=== PATIENT | female | born 1945 | race Caucasian/White ===

== ENCOUNTER → 2016-09-15 | Outpatient (CLI) | payer MEDICARE ==
[~2016-09-15] MED LIST: ASPI1TAB69 PO; BYST5TAB2 PO; CELE40TA PO; GABA100C4 PO; LINA290C PO; LIPI10TA PO; MONT10TA2 PO; NEUR100C PO; NEXI40CA PO; SYMB80AE INH; ZETI10TA5 PO
--- NOTE | 2016-09-15 10:51 | RADRPT ---
EXAM DATE/TIME: 09/15/2016 10:38 [place] COMPARISON: No previous studies available for comparison. INDICATIONS : Evaluate for pneumonia, pneumothorax or communicable disease. Pre-op for right knee arthroscopy. MEDICAL HISTORY : None. SURGICAL HISTORY : None. ENCOUNTER: Initial ACUITY: 1 day PAIN SCORE: 0/10 LOCATION: Bilateral chest FINDINGS: PA and lateral views of the chest demonstrate the lungs to be symmetrically aerated without evidence of mass, infiltrate or effusion. The cardiomediastinal contours are unremarkable. Osseous structure s are intact. Degenerative changes thoracic spine. CONCLUSION: No acute disease. Cristopher Domínguez MD on September 15, 2016 at 10:49 Board Certified Radiologist. This report was verified electronically.
[2016-09-15 12:20] LABS: BLOOD, URINE NEG (NEG); GLUCOSE,URINE NEG (NEG); KETONE, URINE NEG (NEG); NITRITE,URINE NEG (NEG); PH, URINE 6.5 (5.0-8.5); URINE COLOR YELLOW (YELLW/STRAW)
[2016-09-15 12:20] LABS: AUTOMATED NEUTROPHIL # 4.6 TH/MM3 (1.8-7.7); BASOPHIL # 0.1 TH/MM3 (0-0.2); BASOPHIL % 1.1 % (0.0-2.0); EOSINOPHIL # 0.2 TH/MM3 (0-0.4); EOSINOPHIL % 2.9 % (0.0-4.0); HEMATOCRIT 40.1 % (35.0-46.0); HEMO FLAGS DIFF FINAL; LYMPH % 25.8 % (9.0-44.0); LYMPHOCYTE # 1.9 TH/MM3 (1.0-4.8); MEAN CELL VOLUME 91.8 FL (80.0-100.0); MEAN CORPUSCULAR HEMOGLOBIN 30.6 PG (27.0-34.0); MEAN CORPUSCULAR HGB CONC 33.3 % (32.0-36.0); MONO % 7.4 % (0.0-8.0); NEUT % 62.8 % (16.0-70.0); PLATELET COUNT 331 TH/MM3 (150-450); RED BLOOD COUNT 4.37 MIL/MM3 (4.00-5.30); RED CELL DISTRIBUTION WIDTH 14.8 % (11.6-17.2); WHITE BLOOD COUNT 7.4 TH/MM3 (4.0-11.0)
[2016-09-15 12:21] LABS: COMMENT (UR) CULT NOT INDICATED; CULTURE IF INDICATED CULT NOT INDICATED
[2016-09-15 12:44] LABS: BICARBONATE 29.9 MEQ/L (21.0-32.0); POTASSIUM 4.1 MEQ/L (3.5-5.1)
--- NOTE | 2016-09-16 07:28 | EKG ---
Date Performed: 09/15/2016 Time Performed: 09:52:22 PTAGE: 71 years EKG: Sinus rhythm MODERATE ST DEPRESSION, CONSIDER ISCHEMIA Clinical Correlation Recommended ABNORMAL ECG NO PREVIOUS TRACING DOCTOR: Ra Mcgill Interpretating Date/Time 09/16/2016 07:27:01
== END ==
LOC: CPRE 09:27
PROVIDERS: ATTEND Orthopaedic Surgery
DX: Z01.810 Encounter for preprocedural cardiovascular examination (principal); Z01.812 Encounter for preprocedural laboratory examination; S83.231D Complex tear of medial meniscus, current injury, right knee, subsequent encounter; R94.31 Abnormal electrocardiogram [ECG] [EKG]
CPT/HCPCS: 36415; 71020; 80048; 81001; 85025; 85610; 93005

== ENCOUNTER → 2016-10-06 | Outpatient (CLI) | payer MEDICARE ==
[2016-10-06 11:36] LABS: BLOOD, URINE NEG (NEG); GLUCOSE,URINE NEG (NEG); KETONE, URINE NEG (NEG); NITRITE,URINE NEG (NEG); SQUAMOUS EPITHELIAL CELL URINE <1 /hpf (0-5); URINE COLOR LIGHT-YELLOW (YELLW/STRAW)
[2016-10-06 11:45] LABS: COMMENT (UR) CULT NOT INDICATED; CULTURE IF INDICATED CULT NOT INDICATED
[2016-10-06 11:48] LABS: POTASSIUM 4.4 MEQ/L (3.5-5.1)
== END ==
LOC: CPRE 10:30
PROVIDERS: ATTEND Orthopaedic Surgery
DX: Z01.812 Encounter for preprocedural laboratory examination (principal); S83.231D Complex tear of medial meniscus, current injury, right knee, subsequent encounter
CPT/HCPCS: 36415; 80048; 81001; 85610

== ENCOUNTER → 2016-10-16 | Day surgery (SDC) | payer MEDICARE ==
--- NOTE | 2016-10-08 14:59 | MH ---
cc: EVEACACIAGRACIELA BERG DATE OF ADMISSION: 10/16/2016 ADMISSION DIAGNOSIS A complex tear of the medial meniscus of the right knee, chondromalacia right knee, chondromalacia patellae right knee, Burton's cyst right knee, effusion right knee and pain of the right knee. HISTORY OF PRESENT ILLNESS The patient is a 71-year-old white female who has experienced almost a 4-month history of pain involving her right knee. She had noted the abrupt onset of soreness generalized about the anterior aspect of her knee unrelated to any specific injury. She was accustomed to riding a bicycle and walking as part of her exercise program and is related to this activity which included eight mile bicycle ride, she became symptomatic with soreness generalized about her right knee. She modify her activities while taking Advil with only limited benefit being noted. She subsequently underwent office evaluation in August of this year, at which time x-ray studies of the right knee were without evidence of any significant degenerative change. The patient was diagnosed as having a transient synovitis of her right knee for which she was initiated into physical therapy and prescribed diclofenac 75 mg. Unfortunately, she was unable to appreciate any improvement of her symptoms and subsequently underwent an MRI scan. The results of which identified a complex tear involving the posterior horn and root of the medial meniscus with a fragment displaced into the intercondylar notch. A 4 mm medial extrusion of the body of the medial meniscus was also noted. Chondromalacia was identified throughout the medial compartment as well as the patellofemoral articulation. A large Burton's cyst was associated with a joint effusion. The patient returned to the office in follow-up disposition reporting ongoing pain about her right knee that was interfering with ambulatory activities. The findings of her scan were reviewed and treatment options discussed. The pros and cons of continued conservative management versus operative intervention that would involve arthroscopic surgery were outlined in detail. Emphasis was made regarding the fact that the decision to proceed with surgery would be left entirely to the patient's discretion. The patient readily admitted that she felt she was at that point in time where her knee symptoms were of such degree that she was desirous of proceeding with surgery as discussed and in compliance with her wishes she has currently been scheduled for admission in order that the above be accomplished. PAST MEDICAL HISTORY/HOSPITALIZATIONS/SURGERIES Included: 1. Lumbar laminectomy with spinal fusion by instrumentation for history of spondylolisthesis. 2. Laparoscopic cholecystectomy. 3. section. 4. Tonsillectomy. 5. Appendectomy. 6. Colonoscopy. MEDICAL ILLNESSES 1. Sleep apnea for which she utilizes C-PAP. 2. Stress induced asthma. 3. Irritable bowel syndrome. 4. Irregular heart beat. 5. She also has a history of gastroesophageal reflux disease. MEDICATIONS Her current medications: 1. Symbicort 80-4.5 one puff twice daily. 2. Singulair 10 mg daily. 3. Zetia 10 mg daily. 4. Bystolic 5 mg daily. 5. Linzess 290 mcg daily. 6. Citalopram 40 mg daily. 7. Nexium 20-40 mg p.r.n. 8. Gabapentin 30 mg p.r.n. for neuropathy. ALLERGIES The patient describes a drug allergy to TETRACYCLINE WHICH HAS BEEN ASSOCIATED WITH A HIVES-LIKE REACTION. REVIEW OF SYSTEMS She has contact lenses. Denies headache, seizure or syncope. Occasional sinus congestion. No epistaxis. Auditory acuity intact. No tinnitus. No bleeding gums or dysphagia. Denies cough, shortness of breath, upper respiratory infection or tuberculosis. There is a positive history of pneumonia. No angina. She has recently undergone cardiac evaluation for regular heartbeat. Appetite is good. She has a history of irritable bowel syndrome. No hepatitis or ulcers. She is status post laparoscopic cholecystectomy. There is also positive history of hemorrhoids. History of cystitis. No kidney stones. Fracture of the right ankle treated by cast immobilization. Remaining review of systems is unremarkable and noncontributory. FAMILY HISTORY The patient has been a for 8 years, at 83 years of age with history of Alzheimer's disease. She has two sons indicated to be in good health. Family history is otherwise positive for heart disease, breast and ovarian cancer. SOCIAL HISTORY The patient completed a master's degree. 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 Very limited use of tobacco during her collegiate years. Ethanol consumption socially in the form of wine. PHYSICAL EXAMINATION GENERAL: Height 5 feet 4 inches, weight 184 pounds. An alert, oriented and responsive 71-year-old white female who sits quietly upon the examination table with no obvious distress. HEENT: Pupils are equally round and reactive to light. Extraocular movements full. Sclerae clear. External nares clear. External auditory canals clear. Dental intact. Mucous membranes pink and moist. Pharynx clear. NECK: Neck is supple. Active range of motion with no appreciable pain. Carotid pulse palpable bilaterally. Trachea midline. Thyroid without enlargement. LUNGS: Clear to auscultation and percussion. No CVA tenderness. No discomfort throughout the dorsolumbar spine. HEART: Regular rhythm. No murmur or gallop. ABDOMEN: Abdomen is soft, nontender. Bowel sounds present. PELVIC: Per primary care physician. EXTREMITIES: Right knee no significant swelling or effusion. There is slight medial joint line tenderness without palpable deformity. Apprehension and compression sign negative. Limited mobility in the 100 degree range of flexion with mild discomfort at the extreme of motion. No sensation of crepitation or instability. No collateral ligamentous laxity. Anil test and drawer sign negative. Pivot shift and Jason sign positive for medial compartment pain. Straight-leg raising unremarkable at 80 degrees. Independent gait. NEUROLOGIC: Cranial nerves II-XII grossly intact. IMPRESSION Complex tear medial meniscus right knee, chondromalacia right knee, chondromalacia patella right knee, Burton's cyst right knee, effusion right knee, pain right knee. PLAN Arthroscopic surgery and possible arthrotomy, right knee. The nature of the planned surgical procedure, the potential complications and risks associated, the expectations of surgery and the consent form were thoroughly reviewed with the patient prior to admission to the hospital. Shahana has indicated her full understanding regarding all of the above and given consent to proceed with treatment as outlined. Medical evaluation and clearance for surgery will be completed by her primary care physician Dr. Zak Morrow, cardiology clearance per Dr. Willis. Graciela Odonnell MD NBS/TLL /1:47 PM /2:21 PM
[~2016-10-16] VITALS: Ht 162.6 cm; Wt 84.2 kg
[~2016-10-16] MED LIST changes: +*MEPERIDINE 25 MG INJ VIAL PERIprocedural Use ONLY ONE; +*RESP: ALBUTEROL 2.5 MG/3 ML NEB (PRN) PERIprocedural Use ONLY NEB ONE; +*morphine SULFATE 8 MG/ML PERIprocedure ONLY ONE; +ACETAMINOPHEN/HYDROcodone 325 MG/5 MG TAB PO PRN; +CHLORHEXIDINE GLUCONATE 2 % 1 PACK (2 CLOTHS) TOPICAL PRN; +DO NOT ADM ANY ANTICOAGULANT DRUGS PRN; +INSULIN HUMAN REGULAR 1,000 UNITS/10 ML VIAL SQ PRN; +KETOROLAC TROMETHAMINE 60 MG/2 ML (IM) VIAL IM ONE; +LACTATED RINGER'S 1000 ML IV PRN; +LIDOCAINE 2%/EPINEPHrine 1:100,000 30ML MDV ONE; +LIDOCAINE HCL 2% PF SOLN 10 ML VIAL INFIL ONE; +LIDOCAINE HCL 2% PF SOLN 10 ML VIAL ONE; +METOPROLOL TARTRATE 25 MG TAB PO PRN; +MIDAZOLAM HCL 2 MG/2 ML VIAL ONE; +MORPHINE SULFATE 8 MG/ML INJ IM PRN; -NEUR100C PO; +ONDANSETRON HCL 4 MG/2 ML VIAL IV PUSH ONE; +ONDANSETRON HCL 4 MG/2 ML VIAL ONE; +POVIDONE IODINE 5% (ANTISEPSIS KIT) 4 APPLICATIONS EACH NARE PRN; +POVIDONE IODINE 7.5% SCRUB 118 ML BOTTLE TOPICAL SCH; +PROPOFOL 200 MG/20 ML AMP IV ONE; +SODIUM CHLORID 0.9% 500 ML IV PRN; +TRIAMCINOLONE ACETONIDE 40 MG/ML VIAL I-ARTICULR ONE; +TRIAMCINOLONE ACETONIDE 40 MG/ML VIAL ONE; +ceFAZolin 2 GM PREMIX 50 ML IV SCH
[2016-10-16 06:33] VITALS: BP 151/62; PULSE 66; RESP 18; TEMP 98; O2SAT 95
[2016-10-16 10:26] VITALS: BP 144/59; PULSE 65; RESP 17; TEMP 97.9; O2SAT 95
--- NOTE | 2016-10-17 13:30 | MP ---
cc: GRACIELA RIBEIRO DATE OF SURGERY October 16, 2016 PREOPERATIVE DIAGNOSIS Complex tear of the medial meniscus, right knee. Chondromalacia, right knee. Chondromalacia patellae, right knee. Burton's cyst, right knee. Effusion, right knee and pain of the right knee. POSTOPERATIVE DIAGNOSIS Complex tear of the medial meniscus, right knee. Chondromalacia, right knee. Chondromalacia patellae, right knee. Burton's cyst, right knee. Effusion, right knee and pain of the right knee. Synovial plica, right knee. PROCEDURE Partial medial meniscectomy, right knee. Chondroplasty of the medial compartment. Chondroplasty patellofemoral joint. Resection synovial plica, right knee. SURGEON MD Blas ANESTHESIA General by LMA. FORMAT Following induction of satisfactory general anesthesia by LMA insertion as completed per the Department of Anesthesia examination of the right knee revealed a satisfactory range of motion with no appreciable ligamentous instability. The extremity proper was positioned into the registered nurse surgical services knee gresham, prepped with Betadine solution and draped into a sterile field in the routine manner. Prior to initiation of the actual procedure the standard time-out protocol was completed, all parameters were appropriately addressed and confirmed by operating room personnel. Arthroscopic instrumentation was introduced through stab wound utilizing cannula with sharp and blunt trocar. The inflow irrigation by way of a medial suprapatellar portal. The arthroscope through a lateral parapatellar portal. A probe through a medial parapatellar portal. Examination of the suprapatellar pouch did demonstrate localized reactive synovitis. A synovial plica was identified within the medial compartment of the suprapatellar region. There was chondromalacia changes of the patellofemoral joint identified. Within the medial compartment a prominent fraying degenerative type tear with a mild complex component was identified, primarily involving the posterior horn region. There were adjacent articular changes on the femoral condyle and the tibial plateau consistent with chondromalacia. Mild synovial proliferation extended into the intercondylar region. The anterior cruciate ligament was identified and noted to be intact. As attention was directed to the lateral compartment a loose body came into view and was readily suctioned from confines of the joint space. Examination of the lateral compartment thereafter revealed minimal fraying about the anterior region of the joint space that was consistent with some proliferative synovium. The articular surface of the femoral condyle and the tibial plateau appeared to be congruent throughout. There was no evidence of internal derangement involving the lateral meniscus. Attention was redirected to the medial compartment utilizing a 3.8-mm Aggressive resector a partial medial meniscectomy was accomplished followed by a generalized chondroplasty of the femoral condyle and tibial plateau. Proliferative synovium within the intercondylar region and the anterior aspect of the lateral compartment was resected thereafter. The resector was thereafter oriented into the suprapatellar region. The previously identified synovial plica was resected followed by a chondroplasty of the patellofemoral joint. Upon completion of same the joint space was thoroughly lavaged and suctioned dry. An intra-articular Kenalog lidocaine injection was completed. Portal sites were reapproximated with Steri-Strips over which Xeroform gauze and a bulky dry sterile dressing were placed. Anesthesia was discontinued. The patient thus transferred to a hospital stretcher and returned to the recovery room in satisfactory condition having tolerated her operative procedure well. Estimated blood loss was less than 10 cc. MD JACKY Long/JAMES /8:49 AM /1:09 PM
== END | disposition home or self-care (01) ==
LOC: EDUNIT# 09-18 10:30 → HSDC 05:21
PROVIDERS: ATTEND Orthopaedic Surgery
DX: S83.231A Complex tear of medial meniscus, current injury, right knee, initial encounter (principal); M94.261 Chondromalacia, right knee; M67.51 Plica syndrome, right knee; J45.909 Unspecified asthma, uncomplicated; G47.30 Sleep apnea, unspecified; K21.9 Gastro-esophageal reflux disease without esophagitis; K58.9 Irritable bowel syndrome, unspecified; Z98.1 Arthrodesis status
CPT/HCPCS: 01400; 29881; J0690; J1885; J2175; J2250; J2270; J2405; J3010; J3301; J7120; J7613; 94664